=== PATIENT | male | born 1995 | race Caucasian/White ===

== ENCOUNTER 2023-03-16 22:49 | Observation (INO) | payer BC, OTHER ==
--- NOTE | 2023-03-16 23:31 | ERPHSYRPT ---
- History of Present Illness Time Seen by Provider: 03/16/23 23:26 Source: patient Patient Subjective Stated Complaint: pt states he has had a headache since wednesday. today has had some numbness in scalp and face on lt side and blurry vision in lt eye, states lt eyelid feels droopy. Triage Nursing Assessment: pt alert and oriented. answers questions approp. pt ambulates into room with steady gait noted. respirations nonlabored. skin warm and dry. pupils equal and reactive. no facioal droop noted. bilat upper and lower ext strength equal and wnl. Physician History: Patient is a 27-year-old male presents to our ED for evaluation of a headache to the left side of his head. Symptoms started Wednesday 4 days ago. Patient states that headache has been getting worse. Headache is not associated with numbness to the left scalp and face. Patient states his vision is a little blurry. He feels that his left eyelid is droopy however clinically there is no droop or lid lag. No trauma. No fever. Patient states he is under tremendous stress. Symptoms are progressive. Symptoms are moderate in intensity. No specific worsening or improving factors. No trauma no fever no neck pain no photophobia. Patient voices no other complaints or concerns at this time. Portions of this note were created with voice recognition technology. There may be grammatical, spelling, punctuation or sound alike errors Timing/Duration: today Quality: aching Head Pain Location: parietal Severity of Pain-Max: moderate Severity of Pain-Current: mild Recent Head Trauma: no recent headache/trauma Modifying Factors: Improves With: movement Associated Symptoms: vision changes, No nausea/vomiting, No neck pain, No scotoma, No sensitive to light Previous symptoms: no prior history Allergies/Adverse Reactions: No Known Drug Allergies Allergy (Verified 03/16/23 23:16) Home Medications: Sertraline HCl 50 mg [Zoloft 50 mg Tablet] 50 mg PO DAILY 03/16/23 [History] Hx Tetanus, Diphtheria Vaccination/Date Given: Yes Hx Influenza Vaccination/Date Given: No Hx Pneumococcal Vaccination/Date Given: No Immunizations Up to Date: Yes Travel Risk - International Travel Have you traveled outside of the country in past 3 weeks: No - Coronavirus Screening Are you exhibiting any of the following symptoms?: No Close contact with a COVID-19 positive Pt in past 14-21 Days: No - Vaccine Status Have you recieved a Covid-19 vaccination: Yes Medical Officer Psychiatry: Moderna - Vaccination Dates Date of 2cond Vaccination (if applicable): 2020 - Review of Systems Constitutional: No Symptoms, No Fever, No Chills Eyes: No Symptoms Ears, Nose, & Throat: No Symptoms Respiratory: No Symptoms, No Cough, No Dyspnea Cardiac: No Symptoms, No Chest Pain, No Edema, No Syncope Abdominal/Gastrointestinal: No Symptoms, No Abdominal Pain, No Nausea, No Vomiting, No Diarrhea Genitourinary Symptoms: No Symptoms, No Dysuria Musculoskeletal: No Symptoms, No Back Pain, No Neck Pain Skin: No Symptoms, No Rash Neurological: No Symptoms, No Dizziness, No Focal Weakness, No Sensory Changes Psychological: No Symptoms Endocrine: No Symptoms Hematologic/Lymphatic: No Symptoms Immunological/Allergic: No Symptoms All Other Systems: Reviewed and Negative - Past Medical History Pertinent Past Medical History: Yes Neurological History: No Pertinent History ENT History: No Pertinent History Cardiac History: No Pertinent History Respiratory History: No Pertinent History Endocrine Medical History: No Pertinent History Musculoskeletal History: No Pertinent History GI Medical History: Esophageal Disorder, Gallbladder Disease History: No Pertinent History Psycho-Social History: No Pertinent History Male Reproductive Disorders: No Pertinent History - Past Surgical History Past Surgical History: Yes Neuro Surgical History: No Pertinent History Cardiac: No Pertinent History Respiratory: No Pertinent History Gastrointestinal: Cholecystectomy Genitourinary: No Pertinent History Musculoskeletal: Orthopedic Surgery Male Surgical History: No Pertinent History Other Surgical History: several bilateral foot surgeries- flat footed. tonsils - Social History Smoking Status: Current every day smoker How long have you smoked: 10 yrs Exposure to second hand smoke: No Drug Use: none Patient Lives Alone: No - Nursing Vital Signs Nursing Vital Signs: Initial Vital Signs Temperature 98.1 F 03/16/23 22:59 Pulse Rate 112 H 03/16/23 22:59 Respiratory Rate 16 03/16/23 22:59 Blood Pressure 110/67 03/16/23 22:59 O2 Sat by Pulse Oximetry 97 03/16/23 22:59 Pain Scale Pain Intensity 5 - Physical Exam General Appearance: no apparent distress Eye Exam: PERRL/EOMI, eyes nml inspection Ears, Nose, Throat Exam: normal ENT inspection, TMs normal, pharynx normal, moist mucous membranes Neck Exam: normal inspection, supple, full range of motion, No meningismus Respiratory Exam: normal breath sounds, lungs clear Cardiovascular Exam: regular rate/rhythm, normal heart sounds, normal peripheral pulses Gastrointestinal/Abdominal Exam: soft, No tenderness, No distention Back Exam: normal inspection, normal range of motion Mental Status Exam: alert, oriented x 3, cooperative housefellow Exam: normal speech, PERRL, No facial droop Coordination/Gait Exam: normal cerebellar function Motor/Sensory Exam: no motor deficit, no sensory deficit Skin Exam: normal color, warm, dry, No rash Lymphatic Exam: No adenopathy SpO2 Interpretation: normal SpO2: 97 O2 Delivery: Room Air - Course Nursing assessment & vital signs reviewed: Yes - CT Exams Head CT Interpretation: Tele-radiologist Report (The nonenhanced CT study of the brain is unremarkable., Polypoidal mucosal thickening in the left maxillary sinus representing mucosal polyp) Soft Tissue Neck CT Interpretation: Tele-radiologist Report (CTA neck negative for pathology) Other CT Interpretation: Tele-radiologist Report (CTA head negative) Ordered Tests: Active Orders 24 hr Category Date Time Status IV Insertion STAT Care 03/17/23 00:39 Active Tele-Health Consult ROUTINE Cons 03/17/23 01:[address] ANGIOGRAPHY NECK [CT] Stat Exams 03/17/23 01:04 Completed CTA HEAD W AND/OR WO CONTRAST [CT] Stat Exams 03/17/23 01:06 Completed HEAD WITHOUT CONTRAST [CT] Stat Exams 03/16/23 23:09 Completed CBC W DIFF Stat Lab 03/17/23 00:00 Completed CMP Stat Lab 03/17/23 00:00 Completed ETHYL ALCOHOL Stat Lab 03/17/23 00:00 Completed Transfer Order Routine Transfer 03/17/23 Ordered Medication Summary Discontinued Medications Generic Name Dose Route Start Last Admin Trade Name Freq PRN Reason Stop Dose Admin Aspirin 324 mg 03/17/23 01:09 03/17/23 01:13 Aspirin 81 Mg Tab.Chew PO 03/17/23 01:10 324 mg STAT ONE Administration Aspirin Confirm 03/17/23 01:11 Aspirin 81 Mg Tab.Chew Administered 03/17/23 01:12 Dose 324 mg .ROUTE .STK-MED ONE Diphenhydramine HCl 25 mg 03/16/23 23:53 03/17/23 00:03 Diphenhydramine Hcl 50 Mg/Ml Vial IV 09/12/23 23:54 25 mg STAT ONE Administration Diphenhydramine HCl Confirm 03/16/23 23:55 Diphenhydramine Hcl 50 Mg/Ml Vial Administered 03/16/23 23:56 Dose 50 mg .ROUTE .STK-MED ONE Sodium Chloride 1,000 mls @ 999 mls/hr 03/16/23 23:53 03/17/23 01:14 Sodium Chloride 0.9% 1000 Ml IV 03/17/23 00:53 Infused .Q1H1M STA Infusion Sodium Chloride Confirm 03/16/23 23:56 Sodium Chloride 0.9% 1000 Ml Administered 03/16/23 23:57 Dose 1,000 mls @ ud .ROUTE .STK-MED ONE Ketorolac Tromethamine 30 mg 03/16/23 23:54 03/17/23 00:02 Ketorolac Tromethamine 30 Mg/Ml Inj IV 03/16/23 23:55 30 mg STAT ONE Administration Ketorolac Tromethamine Confirm 03/16/23 23:55 Ketorolac Tromethamine 30 Mg/Ml Inj Administered 03/16/23 23:56 Dose 30 mg .ROUTE .STK-MED ONE Prochlorperazine Edisylate 10 mg 03/16/23 23:54 03/17/23 00:02 Prochlorperazine Edisylate 10 Mg/2 Ml Vial IV 03/16/23 23:55 10 mg STAT ONE Administration Prochlorperazine Edisylate Confirm 03/16/23 23:56 Prochlorperazine Edisylate 10 Mg/2 Ml Vial Administered 03/16/23 23:57 Dose 10 mg .ROUTE .STK-MED ONE Lab/Rad Data: Laboratory Result Diagrams 03/17/23 00:00 03/17/23 00:00 Laboratory Results 03/17/23 03/17/23 03/17/23 Range/Units 00:00 00:00 00:00 WBC 7.4 (4.0-10.5) x10^3/uL RBC 4.52 (4.1-5.6) x10^6/uL Hgb 13.8 (12.5-18.0) g/dL Hct 41.1 L (42-50) % MCV 90.9 (78-100) fL MCH 30.5 (26-32) pg MCHC 33.6 (32-36) g/dL RDW 12.0 (11.5-14.0) % Plt Count 341 (150-450) x10^3/uL MPV 9.3 (7.5-11.0) fL Gran % 42.4 (36.0-66.0) % Immature Gran % (Auto) 0.3 (0.00-0.4) % Nucleat RBC Rel Count 0.0 (0.00-0.1) % Eos # (Auto) 0.13 (0-0.5) x10^3/uL Immature Gran # (Auto) 0.02 (0.00-0.03) x10^3u/L Absolute Lymphs (auto) 3.50 (1.0-4.6) x10^3/uL Absolute Monos (auto) 0.52 (0.0-1.3) x10^3/uL Absolute Nucleated RBC 0.00 (0.00-0.01) x10^3u/L Lymphocytes % 47.6 H (24.0-44.0) % Monocytes % 7.1 (0.0-12.0) % Eosinophils % 1.8 (0.00-5.0) % Basophils % 0.8 (0.0-0.4) % Absolute Granulocytes 3.13 (1.4-6.9) x10^3/uL Basophils # 0.06 (0-0.4) x10^3/uL Sodium 142 (137-145) mmol/L Potassium 3.9 (3.5-5.1) mmol/L Chloride 105 (98-107) mmol/L Carbon Dioxide 24 (22-30) mmol/L Anion Gap 16.8 H (5-15) MEQ/L BUN 18 (9-20) mg/dL Creatinine 1.01 (0.66-1.25) mg/dL Estimated GFR > 60.0 ML/MIN Glucose 103 (74-106) mg/dL Calcium 9.6 (8.4-10.2) mg/dL Total Bilirubin 0.50 (0.2-1.3) mg/dL AST 33 (17-59) U/L ALT 27 (0-50) U/L Alkaline Phosphatase 42 (38-126) U/L Serum Total Protein 6.9 (6.3-8.2) g/dL Albumin 4.6 (3.5-5.0) g/dL Ethyl Alcohol 149 H (0-10) mg/dL - Progress Progress: improved Air Movement: good Progress Note: Patient is a 27-year-old male presents to our ED with a headache and numbness and heaviness to the left side of his face. Physical exam essentially nonremarkable. CTA head negative. CBC CMP and unremarkable. Patient received Benadryl Compazine IV fluids and Toradol for headache. Patient reassessed headache significantly improved. Telemetry neuro consulted. Patient received aspirin per their request CTA head neck ordered per teleneurologist request. Both are negative. Teleneurologist advises hospitalization for MR samson GALO of the morning. Plan of care discussed with patient. He agrees to admission to [facility] for further evaluation and treatment. Discussed with Dr. Casillas at 4:17 AM who accepts admission to observation. Portions of this note were created with voice recognition technology. There may be grammatical, spelling, punctuation or sound alike errors Complexity of problems addressed is moderate acute complicated No critical care time Complex of data reviewed and analyzed is extensive. Test ordered. Test reviewed and clinically correlated with history and physical examination. Findings were used and medical decision making. Patient care/management was discussed with teleneurologist and on-call hospitalist . Risk of complication and or risk morbidity/mortality of patient management is high. Patient requires hospitalization for further evaluation and treatment. Vital stable. Time spent to admit patient is approximately 15 minutes. Plan of care established for shared decision making. Portions of this note were created with voice recognition technology. There may be grammatical, spelling, punctuation or sound alike errors 03/17/23 04:18 Blood Culture(s) Obtained: No Antibiotics given: No Discussed with : Candi Will see patient in: hospital (observation) Counseled pt/family regarding: lab results, diagnosis, rad results - Departure Departure Disposition: Observation Clinical Impression: Mucosal polyp Condition: Stable Critical Care Time: No Referrals: EMERSON BRAGG [Primary Care Provider] - Follow up/PCP as directed
--- NOTE | 2023-03-16 23:48 | XRAY ---
CLINICAL HISTORY:headache; L facial numbness COMPARISON:None TECHNIQUE:An axialnon-contrast CT scan of the brain was performed from the skull base to the high parietal region. FINDINGS: The visualized brain parenchyma shows a normal appearance. Talavera-white matter differentiation is maintained. No midline shifts or deformity. No intracerebral or extra axial hematoma. Normal size and configuration of the cerebral ventricles. Normal CT appearance of the posterior fossa structures namely the cerebellar hemispheres, brainstem and cerebellar peduncles. The IACs are unremarkable. The cerebello-pontine angles are clear. The osseous structures in the skull base are unremarkable. No definite calvarium fractures. Visualized paranasal sinuses show polypoidal mucosal thickening in left maxillary sinus representing mucosal polyp IMPRESSION: The non-enhanced CT study for the brain is unremarkable. [facility] was called at [phone] at 11:45 PM EST, 03/16/2023 and results were verbally communicated to Dr. Soto. Electronically Signed by: Nicolas Cooper MD. (03/16/2023 22:46:24 LAND MEASURER)
[2023-03-16] MEDS ORDERED: BENADRYL 50 MG/ML IV ONE (23:53)
[2023-03-16] MEDS ORDERED: Sodium Chloride 0.9% 1000 ML 1,000 ML IV STA (23:53)
[2023-03-16] MEDS ORDERED: Compazine 10 MG/2 ML IV ONE (23:54)
[2023-03-16] MEDS ORDERED: TORAdol 30 mg Injection IV ONE (23:54)
[2023-03-16] MEDS ORDERED: BENADRYL 50 MG/ML ONE (23:55)
[2023-03-16] MEDS ORDERED: TORAdol 30 mg Injection ONE (23:55)
[2023-03-16] MEDS ORDERED: Sodium Chloride 0.9% 1000 ML 1,000 ML ONE (23:56)
[2023-03-16] MEDS ORDERED: Compazine 10 MG/2 ML ONE (23:56)
[2023-03-17 00:45] LABS: Absolute Neutrophil Ct (ANC) 3.13 x10^3/uL (1.4-6.9); BASOPHIL % 0.8 % (0.0-0.4); Basophil (Absolute #) 0.06 x10^3/uL (0-0.4); Eosinophil % 1.8 % (0.00-5.0); Eosinophil (Absolute #) 0.13 x10^3/uL (0-0.5); Hematocrit 41.1 % (42-50); Hemoglobin 13.8 g/dL (12.5-18.0); IMMATURE GRAN # 0.02 x10^3u/L (0.00-0.03); IMMATURE GRAN % 0.3 % (0.00-0.4); Lymphocytes % 47.6 % (24.0-44.0); Mean Cell Volume 90.9 fL (78-100); Mean Corpuscular Hemoglobin 30.5 pg (26-32); Mean Corpuscular Hgb Concent. 33.6 g/dL (32-36); Mean Platelet Volume 9.3 fL (7.5-11.0); Monocyte (Absolute #) 0.52 x10^3/uL (0.0-1.3); Monocytes % 7.1 % (0.0-12.0); Neutrophil % 42.4 % (36.0-66.0); Platelet Count 341 x10^3/uL (150-450); Red Blood Count 4.52 x10^6/uL (4.1-5.6); White Blood Count 7.4 x10^3/uL (4.0-10.5)
[2023-03-17 00:51] LABS: ALBUMIN 4.6 g/dL (3.5-5.0); ALKALINE PHOSPHATASE 42 U/L (38-126); ANION GAP 16.8 MEQ/L (5-15); BLOOD UREA NITROGEN 18 mg/dL (9-20); CHLORIDE 105 mmol/L (98-107); Calcium 9.6 mg/dL (8.4-10.2); Carbon Dioxide 24 mmol/L (22-30); Creatinine 1 1.01 mg/dL (0.66-1.25); EST GLOMERULAR FILTRATION RATE > 60.0 ML/MIN; Glucose 103 mg/dL (74-106); Potassium 3.9 mmol/L (3.5-5.1); SGOT/AST 33 U/L (17-59); SGPT/ALT 27 U/L (0-50); SODIUM 142 mmol/L (137-145); Total Protein 6.9 g/dL (6.3-8.2)
[2023-03-17] MEDS ORDERED: BABY ASPIRIN 81 MG CHEW PO ONE (01:09)
[2023-03-17] MEDS ORDERED: BABY ASPIRIN 81 MG CHEW ONE (01:11)
--- NOTE | 2023-03-17 03:17 | XRAY ---
CLINICAL HISTORY:Paresthesia, LVO? COMPARISON:None TECHNIQUE:An MSCT scan of Miramontes-Cerebral Angiography was performed with IV contrast. FINDINGS: Normal origins of the branches of the arch are seen. They appear normal in their course and caliber. Bilateral common carotid arteries, external carotid arteries, and internal carotid arteries are normal . Intracranial portions of bilateral internal carotid arteries are normal. The right vertebral artery is hypoplastic. Both vertebral arteries and basilar arteries are normal. Visualized cervical spine screening appears normal. No focal or diffuse area of altered attenuation is detected in the supra and infratentorial parenchyma. The bony calvarium is normal. Visualized paranasal sinuses and orbits do not show any significant abnormality. IMPRESSION: No significant abnormality was seen in the present study. Electronically Signed by: Nicolas Cooper MD. (03/17/2023 02:15:06 CERTIFIED PHYSICIAN ASSISTANT)
--- NOTE | 2023-03-17 03:47 | XRAY ---
CLINICAL HISTORY:Paresthesia, LVO ? COMPARISON:None. TECHNIQUE:CT angiography study of the brain vessels with IV contrast was performed and coronal, sagittal and 3D reconstructed images were also obtained. FINDINGS: Anterior Circulation: Normal intracranial segments of ICA. Normal MCA M1, M2, M3 segments. Normal ACOM. Hypoplastc A1 segment on the right side. Otherwise, normal RENETTA in A1, A2 or distal segments. No critical stenosis. No aneurysms. Posterior Circulation: Normal BRAIDING OPERATOR on both sides. Hypoplastic right vertebral artery. Normal caliber opacified of left vertebral artery. No critical stenosis. No aneurysms. Normal internal carotid arteries. No atherosclerotic disease or calcified mural plaques. Normal vertebrobasilar arteries. No occlusion and thrombosis. No carotid artery stenosis. No aneurysms or vascular malformation. IMPRESSION: No significant abnormality is identified in the CT cerebral angiography study. Electronically Signed by: Nicolas Cooper MD. (03/17/2023 02:44:50 BUSINESS OFFICE TECHNOLOGY INSTRUCTOR)
[2023-03-17] MEDS ORDERED: TYLENOL 325 MG PO PRN (05:08)
--- NOTE | 2023-03-17 05:30 | PCM.HP ---
History of Present Illness - Chief Complaint Chief Complaint: Facial numbness, headache Date: 03/17/23 History of Present Illness: 27 y/o M with h/o depression, here with headache and facial numbness. Patient has been under a lot of stress for the past few weeks after his lost a due to eclampsia. He presents today with constant left-sided headache for 3 days, worse with standing or bright lights, not relieved by OTC medications at home. Today, was associated with left-sided facial numbness, and he feels he could not keep his left eye open. No prior h/o headaches or migraines. No other numbness or weakness. He smokes about 1/3 pack per day. He drinks alcohol daily, and Ethanol level was 149 on arrival. No family history of CVA or other vascular disease other than grandmother with a stroke in her 70s. Patient was given headache cocktail including Toradol, Benadryl, and compazine, and per at bedside, patient is very sleepy now. He is more awake than when neurology saw him in the ED, and he is able to slowly answer questions. Neurology recommended CTA which was negative, and MRI brain with MRV brain to evaluate for vascular pathology, because of the positional component of headache. Currently, headache is improved but still present after ED meds. Facial numbness has almost resolved. - Review of Systems Constitutional: No Fever, No Chills, No Weakness Eyes: Photophobia, No Discharge, No Eye Pain, No Tearing, No Vision Changes Ears, Nose, & Throat: No Ear Pain, No Hearing Changes, No Tinnitus, No Nose Congestion, No Sinus Drainage, No Throat Pain Respiratory: No Symptoms Cardiac: No Symptoms Abdominal/Gastrointestinal: No Symptoms Genitourinary Symptoms: No Symptoms Musculoskeletal: No Symptoms Skin: No Symptoms Neurological: Headache, Lethargy, Sensory Changes, No Dizziness, No Focal Weakness, No Gait Changes All Other Systems: Reviewed and Negative Medications & Allergies Home Medications: Home Medication List Sertraline HCl 50 mg [Zoloft 50 mg Tablet] 50 mg PO DAILY 03/16/23 [History Confirmed 03/17/23] Allergies/Adverse Reactions: Allergies Allergy/AdvReac Type Severity Reaction Status Date / Time No Known Drug Allergies Allergy Verified 03/16/23 23:16 - Past Medical History Past Medical History: Yes Neurological History: No Pertinent History ENT History: No Pertinent History Cardiac History: No Pertinent History Respiratory History: No Pertinent History Endocrine Medical History: No Pertinent History Musculoskelatal History: No Pertinent History GI Medical History: Esophageal Disorder, Gallbladder Disease History: No Pertinent History Pyscho-Social History: No Pertinent History Male Reproductive Disorders: No Pertinent History - Past Surgical History Past Surgical History: Yes Neuro Surgical History: No Pertinent History Cardiac History: No Pertinent History Respiratory Surgery: No Pertinent History GI Surgical History: Cholecystectomy Genitourinary Surgical Hx: No Pertinent History Musculskeletal Surgical Hx: Orthopedic Surgery Male Surgical History: No Pertinent History Other Surgical History: several bilateral foot surgeries- flat footed. tonsils - Social History Smoking Status: Current every day smoker How long have you smoked: 10 years Exposure to second hand smoke: No Alcohol: Daily Drug Use: none Significant Family History: stroke (grandmother in her 70s) - Physical Exam Vital Signs: Vital Signs - 24 hr Temp Pulse Resp BP Pulse Ox 03/17/23 05:03 97.1 F 81 12 109/64 95 03/17/23 04:26 97 03/17/23 04:00 78 16 104/62 96 03/17/23 03:30 88 16 96/56 96 03/17/23 03:14 90 16 97 03/17/23 01:00 92 H 18 99/58 95 03/17/23 00:00 90 18 98 03/16/23 23:50 83 18 111/76 97 03/16/23 22:59 98.1 F 112 H 16 110/67 97 General Appearance: no apparent distress Neurologic Exam: alert, oriented x 3, depressed mood/affect, No motor weakness, No facial droop, No slurred speech, No dysarthria Eye Exam: PERRL/EOMI, eyes nml inspection Results - Labs Lab/Micro Results: Lab Results-Last 24 Hours 03/17/23 03/17/23 03/17/23 Range/Units 00:00 00:00 00:00 WBC 7.4 (4.0-10.5) x10^3/uL RBC 4.52 (4.1-5.6) x10^6/uL Hgb 13.8 (12.5-18.0) g/dL Hct 41.1 L (42-50) % MCV 90.9 (78-100) fL MCH 30.5 (26-32) pg MCHC 33.6 (32-36) g/dL RDW 12.0 (11.5-14.0) % Plt Count 341 (150-450) x10^3/uL MPV 9.3 (7.5-11.0) fL Gran % 42.4 (36.0-66.0) % Immature Gran % (Auto) 0.3 (0.00-0.4) % Nucleat RBC Rel Count 0.0 (0.00-0.1) % Eos # (Auto) 0.13 (0-0.5) x10^3/uL Immature Gran # (Auto) 0.02 (0.00-0.03) x10^3u/L Absolute Lymphs (auto) 3.50 (1.0-4.6) x10^3/uL Absolute Monos (auto) 0.52 (0.0-1.3) x10^3/uL Absolute Nucleated RBC 0.00 (0.00-0.01) x10^3u/L Lymphocytes % 47.6 H (24.0-44.0) % Monocytes % 7.1 (0.0-12.0) % Eosinophils % 1.8 (0.00-5.0) % Basophils % 0.8 (0.0-0.4) % Absolute Granulocytes 3.13 (1.4-6.9) x10^3/uL Basophils # 0.06 (0-0.4) x10^3/uL Sodium 142 (137-145) mmol/L Potassium 3.9 (3.5-5.1) mmol/L Chloride 105 (98-107) mmol/L Carbon Dioxide 24 (22-30) mmol/L Anion Gap 16.8 H (5-15) MEQ/L BUN 18 (9-20) mg/dL Creatinine 1.01 (0.66-1.25) mg/dL Estimated GFR > 60.0 ML/MIN Glucose 103 (74-106) mg/dL Calcium 9.6 (8.4-10.2) mg/dL Total Bilirubin 0.50 (0.2-1.3) mg/dL AST 33 (17-59) U/L ALT 27 (0-50) U/L Alkaline Phosphatase 42 (38-126) U/L Serum Total Protein 6.9 (6.3-8.2) g/dL Albumin 4.6 (3.5-5.0) g/dL Ethyl Alcohol 149 H (0-10) mg/dL - Radiology Impressions Radiology Exams & Impressions: Radiology Procedures Category Date Time Status CT ANGIOGRAPHY NECK [CT] Stat Exams 03/17/23 01:04 Completed CTA HEAD W AND/OR WO CONTRAST [CT] Stat Exams 03/17/23 01:06 Completed HEAD WITHOUT CONTRAST [CT] Stat Exams 03/16/23 23:09 Completed MRI BRAIN W & W/O CONTRAST [MRI] Routine Exams 03/17/23 05:[address] brain, CTA head/neck unremarkable. - Other Procedures and Tests Respiratory Therapy 03/17/23 05:18 Smoking Cessation Education ONCE Assessment/Plan (1) Headache Current Visit: Yes Status: Acute Code(s): R51.9 - HEADACHE, UNSPECIFIED (2) Left facial numbness Current Visit: Yes Status: Acute Assessment & Plan: 27 y/o M with h/o depression, here with headache and acute left facial numbness. ## headache, left facial numbness - neurology concerned about vascular structural abnormality (new dissection, aneurysm, AVM, or venous thrombosis). No dissection noted on CTA. Of note, patient under a lot of stressors recently, and elevated alcohol levels on admission may also be contributing to symptoms. Headache improving, numbness almost resolved. - get MRI brain w and wo contrast, per neuro request - unable to order MRV head w and wo contrast; will discuss with radiology when arrive in the morning - place on telemetry, neuro checks - check lipid panel, TSH, A1c - will not order Echo unless find abnormalities on brain imaging ## depression - continue home sertraline Code Status: Full code Prophylaxis: None, short stay, patient ambulatory Diet: Regular Dispo: likely home after MRI results Code(s): R20.0 - ANESTHESIA OF SKIN Telemedicine Encounter - Telemedicine Encounter Telemedicine Encounter: The entirety of this encounter was performed via Telemedicine"
[2023-03-17] MEDS ORDERED: Ativan 1 MG PO PRN (07:22)
[2023-03-17] MEDS ORDERED: PHENERGAN 25 MG PO PRN (07:22)
--- NOTE | 2023-03-17 07:30 | PCM.NOTE ---
Date and Time: 03/17/23723 Subjective Assessment: 27 y/o M with h/o depression, here with headache and facial numbness. Patient has been under a lot of stress for the past few weeks after his lost a due to eclampsia. He presented 03/17/23 with constant left-sided headache for 3 days, worse with standing or bright lights, not relieved by OTC medications at home. On presentation, headache had associated left-sided facial numbness, and he felt that he could not keep his left eye open. No prior h/o headaches or migraines. No other numbness or weakness. He smokes about 1/3 pack per day. He drinks alcohol daily, and Ethanol level was 149 on arrival. No family history of CVA or other vascular disease other than grandmother with a stroke in her 70s. IN ER, patient was given headache cocktail including Toradol, Benadryl, and compazine. Neurology recommended CTA which was negative, and MRI brain with MRV brain to evaluate for vascular pathology, because of the positional component of headache. Currently patient endorses mild left frontal headache, somewhat improved since admission. No longer with Left-sided numbness/tingling. MRI pending. Unable to obtain MRV at this facility per Radiology. - Review of Systems Constitutional: No Symptoms Eyes: No Symptoms Ears, Nose, & Throat: No Symptoms Respiratory: No Symptoms Cardiac: No Symptoms Abdominal/Gastrointestinal: No Symptoms Genitourinary Symptoms: No Symptoms Musculoskeletal: No Symptoms Skin: No Symptoms Neurological: Headache (left frontal ) Psychological: No Symptoms Endocrine: No Symptoms Hematologic/Lymphatic: No Symptoms Objective Exam General Appearance: no apparent distress Neurologic Exam: alert, oriented x 3, cooperative, other (AA&Ox3. Sensation intact in upper and lower extremities b/l. Motor strength 5/5 in all extremities. EOMI, PERRLA, no nystagmus noted. CN 2-12 intact as follows: CN2: Vision intact, pupils equal, bilaterally reactive to light CN3: EOMI CN4: Down and lateral EOMI CN5: V1,V2,V3 with sensation) Skin Exam: normal color Eye Exam: PERRL Ears, Nose, Throat Exam: normal ENT inspection Neck Exam: normal inspection Respiratory Exam: normal breath sounds, lungs clear Cardiovascular Exam: regular rate/rhythm, normal heart sounds Gastrointestinal/Abdomen Exam: soft, normal bowel sounds Extremity Exam: normal inspection Back Exam: normal inspection Male Genitalia Exam: deferred Rectal Exam: deferred OBJECTIVE DATA Vital Signs: Vital Signs - 24 hr Temp Pulse Resp BP Pulse Ox 03/17/23 07:13 97.1 F 74 16 102/58 96 03/17/23 05:03 97.1 F 81 12 109/64 95 03/17/23 04:26 97 03/17/23 04:00 78 16 104/62 96 03/17/23 03:30 88 16 96/56 96 03/17/23 03:14 90 16 97 03/17/23 01:00 92 H 18 99/58 95 03/17/23 00:00 90 18 98 03/16/23 23:50 83 18 111/76 97 03/16/23 22:59 98.1 F 112 H 16 110/67 97 Pain Assessment - Last Documented Pain Intensity 3 Intake and Output: Intake & Output 03/14/23 03/15/23 03/16/23 03/17/23 11:59 11:59 11:59 11:59 Weight 83.7 kg Lab Results: Lab Results-Last 24 Hours 03/17/23 03/17/23 03/17/23 Range/Units 00:00 00:00 00:00 WBC 7.4 (4.0-10.5) x10^3/uL RBC 4.52 (4.1-5.6) x10^6/uL Hgb 13.8 (12.5-18.0) g/dL Hct 41.1 L (42-50) % MCV 90.9 (78-100) fL MCH 30.5 (26-32) pg MCHC 33.6 (32-36) g/dL RDW 12.0 (11.5-14.0) % Plt Count 341 (150-450) x10^3/uL MPV 9.3 (7.5-11.0) fL Gran % 42.4 (36.0-66.0) % Immature Gran % (Auto) 0.3 (0.00-0.4) % Nucleat RBC Rel Count 0.0 (0.00-0.1) % Eos # (Auto) 0.13 (0-0.5) x10^3/uL Immature Gran # (Auto) 0.02 (0.00-0.03) x10^3u/L Absolute Lymphs (auto) 3.50 (1.0-4.6) x10^3/uL Absolute Monos (auto) 0.52 (0.0-1.3) x10^3/uL Absolute Nucleated RBC 0.00 (0.00-0.01) x10^3u/L Lymphocytes % 47.6 H (24.0-44.0) % Monocytes % 7.1 (0.0-12.0) % Eosinophils % 1.8 (0.00-5.0) % Basophils % 0.8 (0.0-0.4) % Absolute Granulocytes 3.13 (1.4-6.9) x10^3/uL Basophils # 0.06 (0-0.4) x10^3/uL Sodium 142 (137-145) mmol/L Potassium 3.9 (3.5-5.1) mmol/L Chloride 105 (98-107) mmol/L Carbon Dioxide 24 (22-30) mmol/L Anion Gap 16.8 H (5-15) MEQ/L BUN 18 (9-20) mg/dL Creatinine 1.01 (0.66-1.25) mg/dL Estimated GFR > 60.0 ML/MIN Glucose 103 (74-106) mg/dL Hemoglobin A1c (4.5-6.0) % Calcium 9.6 (8.4-10.2) mg/dL Total Bilirubin 0.50 (0.2-1.3) mg/dL AST 33 (17-59) U/L ALT 27 (0-50) U/L Alkaline Phosphatase 42 (38-126) U/L Serum Total Protein 6.9 (6.3-8.2) g/dL Albumin 4.6 (3.5-5.0) g/dL Ethyl Alcohol 149 H (0-10) mg/dL 03/17/23 Range/Units 05:36 WBC (4.0-10.5) x10^3/uL RBC (4.1-5.6) x10^6/uL Hgb (12.5-18.0) g/dL Hct (42-50) % MCV (78-100) fL MCH (26-32) pg MCHC (32-36) g/dL RDW (11.5-14.0) % Plt Count (150-450) x10^3/uL MPV (7.5-11.0) fL Gran % (36.0-66.0) % Immature Gran % (Auto) (0.00-0.4) % Nucleat RBC Rel Count (0.00-0.1) % Eos # (Auto) (0-0.5) x10^3/uL Immature Gran # (Auto) (0.00-0.03) x10^3u/L Absolute Lymphs (auto) (1.0-4.6) x10^3/uL Absolute Monos (auto) (0.0-1.3) x10^3/uL Absolute Nucleated RBC (0.00-0.01) x10^3u/L Lymphocytes % (24.0-44.0) % Monocytes % (0.0-12.0) % Eosinophils % (0.00-5.0) % Basophils % (0.0-0.4) % Absolute Granulocytes (1.4-6.9) x10^3/uL Basophils # (0-0.4) x10^3/uL Sodium (137-145) mmol/L Potassium (3.5-5.1) mmol/L Chloride (98-107) mmol/L Carbon Dioxide (22-30) mmol/L Anion Gap (5-15) MEQ/L BUN (9-20) mg/dL Creatinine (0.66-1.25) mg/dL Estimated GFR ML/MIN Glucose (74-106) mg/dL Hemoglobin A1c 5.44 (4.5-6.0) % Calcium (8.4-10.2) mg/dL Total Bilirubin (0.2-1.3) mg/dL AST (17-59) U/L ALT (0-50) U/L Alkaline Phosphatase (38-126) U/L Serum Total Protein (6.3-8.2) g/dL Albumin (3.5-5.0) g/dL Ethyl Alcohol (0-10) mg/dL Radiology Exams: Radiology Procedures Category Date Time Status CT ANGIOGRAPHY NECK [CT] Stat Exams 03/17/23 01:04 Completed CTA HEAD W AND/OR WO CONTRAST [CT] Stat Exams 03/17/23 01:06 Completed HEAD WITHOUT CONTRAST [CT] Stat Exams 03/16/23 23:09 Completed MRI BRAIN W & W/O CONTRAST [MRI] Routine Exams 03/17/23 05:09 Ordered Assessment/Plan (1) Left facial numbness Current Visit: Yes Status: Acute Assessment & Plan: headache, left facial numbness - neurology concerned about vascular structural abnormality (new dissection, aneurysm, AVM, or venous thrombosis). No dissection noted on CTA. Of note, patient under a lot of stressors recently, and elevated alcohol levels on admission may also be contributing to symptoms. Headache improving, numbness almost resolved. - get MRI brain w and wo contrast, per neuro request - unable to order MRV head w and wo contrast; will discuss with radiology when arrive in the morning - place on telemetry, neuro checks - check lipid panel, TSH, A1c - will not order Echo unless find abnormalities on brain imaging 03/17: -Resolved -MRI brain pending, follow up neuro consult pending Code(s): R20.0 - ANESTHESIA OF SKIN (2) Headache Current Visit: Yes Status: Acute Assessment & Plan: -03/17: -Left frontal headache, improved but still present. MRI brain pending, discharge pending neuro follow up and final MRI read -Per neuro recs from 03/16 visits: -If MRI showing stroke or CTA showing dissection: check ECHO bublle study, consider further heart monitoring, thrombophilia paneal, load plavix 300mg x 1, start ASA 81mg po qd, and plavix 75mg daily for 3 weeks then switch to asa only. ADD statin. If imaging shows venous thrombus start anticoagulation Code(s): R51.9 - HEADACHE, UNSPECIFIED (3) Depression Current Visit: Yes Status: Acute Assessment & Plan: - continue home sertraline Code Status: Full code Prophylaxis: None, short stay, patient ambulatory Diet: Regular Dispo: likely home after MRI results Code(s): F32.A - DEPRESSION, UNSPECIFIED
[2023-03-17 07:48] LABS: Risk Ratio 2.4; TSH, 3RD Generation 3.79 mIU/L (0.47-4.68)
[2023-03-17] MEDS ORDERED: VITAMIN B-1 100 MG PO SCH (10:00)
[2023-03-17] MEDS ORDERED: ZOLOFT 50 MG TABLET PO SCH (10:00)
[2023-03-17] MEDS ORDERED: FOLATE 1 MG PO SCH (10:00)
[2023-03-17] MEDS ORDERED: THERAGRAN MULTIVITAMIN PO SCH (10:00)
[2023-03-17 13:49] VITALS: BP 124/57; PULSE 70; RESP 15; TEMP 97.3; O2SAT 95
--- NOTE | 2023-03-17 14:08 | XRAY ---
Indication: Headache. Facial numbness. Normal CT head without contrast exam. Negative CTA neck and CTA head. Sagittal, coronal, and axial MRI brain performed pre and post T1, T2, FLAIR, diffusion, and ADC sequences. 15 cc Dotarem contrast used. Ventriculosulcal pattern appears symmetric. No acute intracranial hemorrhage, abnormal extra-axial fluid collection, or mass effect. Diffusion images are negative for restricted signal. Following gadolinium, no abnormal enhancing intra or extra-axial mass. Fourth ventricle is midline without hydrocephalus. 7/8 cranial nerve complex bilaterally symmetric. Normal flow void signal within the major intracerebral circulation. Normal appearing craniocervical junction and sella turcica. Inferior left maxillary sinus demonstrates 2.7 cm polyp/retention cyst. Impression: Left maxillary sinus polyp/retention cyst. Remaining MRI brain with contrast exam is normal.
--- NOTE | 2023-03-17 14:54 | PCM.DS ---
Discharge Summary Date of Admission: 03/17/23 04:48 Date of Discharge: 03/17/23 Admitting Physician: RASHEL CRISTOBAL MD Consults: Consults on Case 03/17/23 01:18 Tele-Health Consult ROUTINE Primary Care Provider: EMERSON BRAGG Allergies Allergies No Known Drug Allergies Allergy (Verified 03/16/23 23:16) Hospital Summary - Hospital Course Hospital Course: 27 y/o M with h/o depression, here with headache and facial numbness. Patient has been under a lot of stress for the past few weeks after his lost a due to eclampsia. He presented 03/17/23 with constant left-sided headache for 3 days, worse with standing or bright lights, not relieved by OTC medications at home. On presentation, headache had associated left-sided facial numbness, and he felt that he could not keep his left eye open. No prior h/o headaches or migraines. No other numbness or weakness. He smokes about 1/3 pack per day. He drinks alcohol daily, and Ethanol level was 149 on arrival. No family history of CVA or other vascular disease other than grandmother with a stroke in her 70s. IN ER, patient was given headache cocktail including Toradol, Benadryl, and compazine. Neurology recommended CTA which was negative, and MRI brain with MRV brain to evaluate for vascular pathology, because of the positional component of headache. Currently patient endorses mild left frontal headache, improved since admission. No longer with Left-sided numbness/tingling. MRI unremarkable, findings do however include left maxillary sinus polyp/retention cyst . Unable to obtain MRV at this facility per Radiology. CTA re-read with notation to the venous system: findings were normal in course and caliber without filling defect. Patient advised to follow up with neurology as an outpatient. Patient agreeable to plan, ready for discharge. New Diagnosis: left sided headache/numbness/ tingling New Medications: none Follow Up: PCP/Neurology Latest Assessment & Plan (1) Left facial numbness Current Visit: Yes Status: Acute Assessment & Plan: headache, left facial numbness - neurology concerned about vascular structural abnormality (new dissection, aneurysm, AVM, or venous thrombosis). No dissection noted on CTA. Of note, patient under a lot of stressors recently, and elevated alcohol levels on admission may also be contributing to symptoms. Headache improving, numbness almost resolved. - get MRI brain w and wo contrast, per neuro request - unable to order MRV head w and wo contrast; will discuss with radiology when arrive in the morning - place on telemetry, neuro checks - check lipid panel, TSH, A1c - will not order Echo unless find abnormalities on brain imaging 03/17: -Resolved -MRI brain pending, follow up neuro consult pending Code(s): R20.0 - ANESTHESIA OF SKIN (2) Headache Current Visit: Yes Status: Acute Assessment & Plan: -03/17: -Left frontal headache, improved but still present. MRI brain pending, discharge pending neuro follow up and final MRI read -Per neuro recs from 03/16 visits: -If MRI showing stroke or CTA showing dissection: check ECHO bubble study, consider further heart monitoring, thrombophilia paneal, load plavix 300mg x 1, start ASA 81mg po qd, and plavix 75mg daily for 3 weeks then switch to asa only. ADD statin. If imaging shows venous thrombus start anticoagulation Code(s): R51.9 - HEADACHE, UNSPECIFIED (3) Depression Current Visit: Yes Status: Acute Assessment & Plan: - continue home sertraline I spent 35 minutes [id number] with the patient on the day of discharge performing discharge exam, discussing hospital stay and discharge instructions with patient and caregivers, preparation of discharge records, prescriptions & referral forms and addressing any questions/concerns the patient had as documented above. - Vitals & Intake/Output Vital Signs: Vital Signs Temperature 97.3 F 03/17/23 12:00 Pulse Rate 70 03/17/23 12:00 Respiratory Rate 15 03/17/23 12:00 Blood Pressure 124/57 03/17/23 12:00 O2 Sat by Pulse Oximetry 95 03/17/23 12:00 Intake & Output: Intake & Output 03/15/23 03/16/23 03/17/23 03/18/23 11:59 11:59 11:59 11:59 Intake Total 240 360 Balance 240 360 Weight 83.7 kg - Lab Result Diagrams: 03/17/23 00:00 03/17/23 00:00 Lab Results-Last 24 Hrs: Lab Results-Last 24 Hours 03/17/23 03/17/23 03/17/23 Range/Units 00:00 00:00 00:00 WBC 7.4 (4.0-10.5) x10^3/uL RBC 4.52 (4.1-5.6) x10^6/uL Hgb 13.8 (12.5-18.0) g/dL Hct 41.1 L (42-50) % MCV 90.9 (78-100) fL MCH 30.5 (26-32) pg MCHC 33.6 (32-36) g/dL RDW 12.0 (11.5-14.0) % Plt Count 341 (150-450) x10^3/uL MPV 9.3 (7.5-11.0) fL Gran % 42.4 (36.0-66.0) % Immature Gran % (Auto) 0.3 (0.00-0.4) % Nucleat RBC Rel Count 0.0 (0.00-0.1) % Eos # (Auto) 0.13 (0-0.5) x10^3/uL Immature Gran # (Auto) 0.02 (0.00-0.03) x10^3u/L Absolute Lymphs (auto) 3.50 (1.0-4.6) x10^3/uL Absolute Monos (auto) 0.52 (0.0-1.3) x10^3/uL Absolute Nucleated RBC 0.00 (0.00-0.01) x10^3u/L Lymphocytes % 47.6 H (24.0-44.0) % Monocytes % 7.1 (0.0-12.0) % Eosinophils % 1.8 (0.00-5.0) % Basophils % 0.8 (0.0-0.4) % Absolute Granulocytes 3.13 (1.4-6.9) x10^3/uL Basophils # 0.06 (0-0.4) x10^3/uL Sodium 142 (137-145) mmol/L Potassium 3.9 (3.5-5.1) mmol/L Chloride 105 (98-107) mmol/L Carbon Dioxide 24 (22-30) mmol/L Anion Gap 16.8 H (5-15) MEQ/L BUN 18 (9-20) mg/dL Creatinine 1.01 (0.66-1.25) mg/dL Estimated GFR > 60.0 ML/MIN Glucose 103 (74-106) mg/dL Hemoglobin A1c (4.5-6.0) % Calcium 9.6 (8.4-10.2) mg/dL Total Bilirubin 0.50 (0.2-1.3) mg/dL AST 33 (17-59) U/L ALT 27 (0-50) U/L Alkaline Phosphatase 42 (38-126) U/L Serum Total Protein 6.9 (6.3-8.2) g/dL Albumin 4.6 (3.5-5.0) g/dL Triglycerides (30-150) mg/dL Cholesterol (50-200) mg/dL LDL Cholesterol (30-100) mg/dL HDL Cholesterol (40-60) mg/dL Heart Disease Risk Ratio Vitamin B12 (239-931) pg/mL TSH 3rd Generation (0.47-4.68) mIU/L Ethyl Alcohol 149 H (0-10) mg/dL 03/17/23 03/17/23 Range/Units 05:36 05:36 WBC (4.0-10.5) x10^3/uL RBC (4.1-5.6) x10^6/uL Hgb (12.5-18.0) g/dL Hct (42-50) % MCV (78-100) fL MCH (26-32) pg MCHC (32-36) g/dL RDW (11.5-14.0) % Plt Count (150-450) x10^3/uL MPV (7.5-11.0) fL Gran % (36.0-66.0) % Immature Gran % (Auto) (0.00-0.4) % Nucleat RBC Rel Count (0.00-0.1) % Eos # (Auto) (0-0.5) x10^3/uL Immature Gran # (Auto) (0.00-0.03) x10^3u/L Absolute Lymphs (auto) (1.0-4.6) x10^3/uL Absolute Monos (auto) (0.0-1.3) x10^3/uL Absolute Nucleated RBC (0.00-0.01) x10^3u/L Lymphocytes % (24.0-44.0) % Monocytes % (0.0-12.0) % Eosinophils % (0.00-5.0) % Basophils % (0.0-0.4) % Absolute Granulocytes (1.4-6.9) x10^3/uL Basophils # (0-0.4) x10^3/uL Sodium (137-145) mmol/L Potassium (3.5-5.1) mmol/L Chloride (98-107) mmol/L Carbon Dioxide (22-30) mmol/L Anion Gap (5-15) MEQ/L BUN (9-20) mg/dL Creatinine (0.66-1.25) mg/dL Estimated GFR ML/MIN Glucose (74-106) mg/dL Hemoglobin A1c 5.44 (4.5-6.0) % Calcium (8.4-10.2) mg/dL Total Bilirubin (0.2-1.3) mg/dL AST (17-59) U/L ALT (0-50) U/L Alkaline Phosphatase (38-126) U/L Serum Total Protein (6.3-8.2) g/dL Albumin (3.5-5.0) g/dL Triglycerides 54 (30-150) mg/dL Cholesterol 159 (50-200) mg/dL LDL Cholesterol 80 (30-100) mg/dL HDL Cholesterol 67 H (40-60) mg/dL Heart Disease Risk Ratio 2.4 Vitamin B12 235 L (239-931) pg/mL TSH 3rd Generation 3.790 (0.47-4.68) mIU/L Ethyl Alcohol (0-10) mg/dL - Radiology Exams Ordered Rad Exams-Entire Visit: Radiology Procedures Category Date Time Status CT ANGIOGRAPHY NECK [CT] Stat Exams 03/17/23 01:04 Completed CTA HEAD W AND/OR WO CONTRAST [CT] Stat Exams 03/17/23 01:06 Completed HEAD WITHOUT CONTRAST [CT] Stat Exams 03/16/23 23:09 Completed MRI BRAIN W & W/O CONTRAST [MRI] Routine Exams 03/17/23 05:09 Completed - Procedures and Test Procedures and Tests throughout Hospitalization: Therapy Orders & Screens 03/17/23 05:18 Smoking Cessation Education ONCE Comment: Diagnosis: Facial numbness, headache Smoking Status: Current every day smoker How long have you smoked: 10 years Have you smoked in the past 12 months: Yes Approximately how many cigarettes per day: half a pack/day Do you dip or chew tobacco: No Discharge Exam General Appearance: no apparent distress Neurologic Exam: alert, oriented x 3, cooperative Eye Exam: PERRL Neck Exam: normal inspection Respiratory Exam: normal breath sounds, lungs clear Cardiovascular Exam: regular rate/rhythm, normal heart sounds Gastrointestinal/Abdomen Exam: soft, normal bowel sounds Male Genitalia Exam: deferred Rectal Exam: deferred Back Exam: normal inspection Extremity Exam: normal inspection Skin Exam: normal color Final Diagnosis/Problem List - Final Discharge Diagnosis/Problem (1) Left facial numbness Current Visit: Yes Status: Resolved Code(s): R20.0 - ANESTHESIA OF SKIN (2) Headache Current Visit: Yes Status: Acute Code(s): R51.9 - HEADACHE, UNSPECIFIED (3) Depression Current Visit: Yes Status: Chronic Code(s): F32.A - DEPRESSION, UNSPECIFIED - Discharge Disposition: Home, Self-Care Condition: Good Prescriptions: Continue Sertraline HCl 50 mg [Zoloft 50 mg Tablet] 50 mg PO DAILY Follow up with: EMERSON BRAGG [Primary Care Provider] - PRO CONDON MD [NON-STAFF PHY W/O PRIVILEGES] - 5 Days
[2023-03-17] MEDS ORDERED: TORAdol 30 mg Injection IV PRN (14:58)
== END 2023-03-17 17:05 | disposition home or self-care (01) ==
LOC: ED 22:49 → MED SURG 03-17 04:48
PROVIDERS: ADMIT Internal Medicine; ATTEND Internal Medicine
DX: R20.0 Anesthesia of skin (principal); R51.9 Headache, unspecified; F32.A Depression, unspecified; Z20.828 Contact with and (suspected) exposure to other viral communicable diseases; Z72.0 Tobacco use
CPT/HCPCS: 36000; 36415; 70450; 70496; 70498; 70553; 80053; 80061; 82077; 82607; 83036; 83721; 84443; 85025; 96360; 96374; 96375; 99284; G0378; J1200; J1885; Q3014; A9270-GY